=== PATIENT | female | born 1990 | race Native Hawaiian/Other Pacific Islander ===

== ENCOUNTER 2017-03-31 07:29 | Emergency (ER) | payer OTHER ==
[~2017-03-31] VITALS: Ht 167.6 cm; Wt 63.5 kg
[2017-03-31 07:32] VITALS: BP 123/81
== END 2017-03-31 07:33 | disposition left against medical advice (07) ==
LOC: ED 07:29
DX: Z53.21 Procedure and treatment not carried out due to patient leaving prior to being seen by health care provider (principal)

== ENCOUNTER 2017-09-07 21:07 | Emergency (ER) | payer OTHER ==
[~2017-09-07] VITALS: Ht 167.6 cm; Wt 65.8 kg
[2017-09-07 21:13] VITALS: Ht 167.6 cm; Wt 65.8 kg
[2017-09-07 22:21] VITALS: BP 124/58
== END 2017-09-07 22:21 | disposition home or self-care (01) ==
LOC: ED 21:07
DX: M25.572 Pain in left ankle and joints of left foot (principal); J45.909 Unspecified asthma, uncomplicated; Y93.66 Activity, soccer
CPT/HCPCS: J1885

== ENCOUNTER 2017-09-18 22:19 | Emergency (ER) | payer OTHER ==
[~2017-09-18] VITALS: Ht 167.6 cm; Wt 65.8 kg
[2017-09-18 22:26] VITALS: Ht 167.6 cm; Wt 65.8 kg
[2017-09-19 02:55] VITALS: BP 123/74
== END 2017-09-19 02:56 | disposition home or self-care (01) ==
LOC: ED 22:19
DX: B34.9 Viral infection, unspecified (principal); J45.909 Unspecified asthma, uncomplicated
CPT/HCPCS: J7512; J7613; J7644

== ENCOUNTER 2018-06-07 16:51 | Emergency (ER) | payer OTHER ==
[~2018-06-07] VITALS: Ht 167.6 cm; Wt 63.5 kg
[2018-06-07 17:08] VITALS: Ht 167.6 cm; Wt 63.5 kg
[2018-06-07 18:14] LABS: BASOPHIL % 0.3 % (0-2); PLATELET COUNT 252 x10^3mcL (130-400); RED CELL DISTRIBUTION WIDTH 12.1 % (11.5-14.5)
[2018-06-07 18:20] LABS: CALCIUM 8.5 mg/dL (8.5-10.1); CARBON DIOXIDE 26.3 mmol/L (21-32); CHLORIDE SERUM 102 mmol/L (98-107); CREATININE SERUM 0.6 mg/dL (0.6-1.0); GFR1 > 60 mL/min; GLUCOSE SERUM 104 mg/dL (74-106); POTASSIUM SERUM 3.5 mmol/L (3.5-5.1); SODIUM SERUM 137 mmol/L (136-145)
[2018-06-07 18:24] LABS: ALKALINE PHOSPHATASE 68 U/L (46-116); ALT/SGPT 34 U/L (14-59); AMYLASE 65 U/L (25-115); AST/SGOT 18 U/L (15-37); BILIRUBIN TOTAL 0.86 mg/dL (0.20-1.00); LIPASE 83 IU/L (73-393); TOTAL PROTEIN, SERUM 7.5 g/dL (6.4-8.2)
[2018-06-07 19:51] VITALS: BP 111/67
== END 2018-06-07 19:51 | disposition home or self-care (01) ==
LOC: ED 16:51
PROVIDERS: Emergency Medicine
DX: K52.9 Noninfective gastroenteritis and colitis, unspecified (principal); J45.909 Unspecified asthma, uncomplicated
CPT/HCPCS: J1885; J2405

== ENCOUNTER 2019-05-19 03:48 | Emergency (ER) | payer OTHER ==
[~2019-05-19] VITALS: Ht 167.6 cm; Wt 65.8 kg
[2019-05-19 03:56] VITALS: Ht 167.6 cm; Wt 65.8 kg
[2019-05-19 04:45] VITALS: BP 139/52
== END 2019-05-19 04:45 | disposition home or self-care (01) ==
LOC: ED 03:48
DX: J04.0 Acute laryngitis (principal); J45.901 Unspecified asthma with (acute) exacerbation
CPT/HCPCS: J7512